=== PATIENT | male | born 1930 | race Caucasian/White ===

== ENCOUNTER 2021-05-23 11:19 | Inpatient (IN) ==
[2021-05-23 12:40] LABS: Albumin 2.9 G/DL (3.4-5.0); Bilirubin,Total 0.5 MG/DL (0.20-1.00); Calcium 8.7 MG/DL (8.5-10.1); Osmolality,Calculated 278.1 MOS/KG (273-304); Total Protein 6.7 G/DL (6.4-8.2)
[2021-05-23 12:56] LABS: Potassium 6.1 MMOL/L (3.5-5.1)
[2021-05-23] MEDS ORDERED: INSULIN REGULAR 100 UNIT/ML IV STA (12:57)
[2021-05-23] MEDS ORDERED: DEXTROSE 50% 25 GM/50 ML VIAL IV STA (12:57)
[2021-05-23] MEDS ORDERED: SODIUM BICARBONATE 50 MEQ/50 ML VIAL IV STA (12:57)
[2021-05-23] MEDS ORDERED: CALCIUM CHLORIDE 1,000 MG/10 ML SYRINGE IV STA (12:57)
[2021-05-23] MEDS ORDERED: DEXTROSE 50% 25 GM/50 ML SYRINGE IV STA (13:00)
[2021-05-23] MEDS ORDERED: ONDANSETRON 4 MG/2 ML VIAL IV PRN (13:18)
[2021-05-23] MEDS ORDERED: ZALEPLON 5 MG CAPSULE PO PRN (13:18)
[2021-05-23] MEDS ORDERED: BISACODYL 5 MG TABLET PO PRN (13:18)
[2021-05-23 13:34] LABS: Basophils % 0.1 % (0.0-0.8); Eosinophils # 0.1 10*3/uL (0.0-0.87); Eosinophils % 0.6 % (0.00-10.9); Hemoglobin 10.3 GM/DL (14.0-18.0); Immature Granulocytes % 1.1 %; Immature Granulocytes Absolute 0.11 #; Lymphocytes # 1.3 10*3/uL (1.4-4.0); Lymphocytes % 12.8 % (21.2-54.2); Mean Corpuscular HGB Conc 34.3 GM/DL (32-36); Mean Corpuscular Volume 98.4 FL (87-102); Mean Platelet Volume 10.9 FL (9.6-12.0); Monocytes % 5.3 % (1.7-12.7); Neutrophils % 80.1 % (38.7-73.9); Platelet Count 176 T/CUMM (130-400); Red Blood Count 3.05 MC/CUMM (3.8-5.5); White Blood Count 10.4 T/CUMM (4-12)
[2021-05-23] MEDS ORDERED: SODIUM POLYSTYRENE SULFATE 15 GM/60 ML BOTTLE PO STA (13:55)
[2021-05-23] MEDS: DOBUTamine 500 MG/250 ML PREMIX IV SCH (13:59)
[2021-05-23] MEDS: ENOXAPARIN 30 MG/0.3 ML SYRINGE SUBCUT SCH (14:31)
[2021-05-23 15:09] LABS: Bilirubin,Urine Negative (Negative); Blood, Urine Negative (Negative); Glucose,Urine (UA) Negative (Negative); Hyaline Casts,Urine 19 /LPF (0-3); Ketones,Urine Negative (Negative); Nitrite,Urine Negative (Negative); Protein,Urine Negative; RBC,Urine 1 /HPF (0-4); Squamous Epithelial Cell,Urine Occasional /HPF (0-10); Urine Appearance CLEAR (Clear); Urine Color Yellow (Yellow); Urine Specific Gravity 1.012 (1.001-1.035); Urine Urobilinogen < 2.0 EU/DL (<2.0)
[2021-05-23] MEDS: ACETAMINOPHEN 325 MG TABLET PO PRN (16:09)
[2021-05-23] MEDS: INSULIN REGULAR 100 UNIT/ML SUBCUT SCH (18:36)
[2021-05-23] MEDS: SIMVASTATIN 20 MG TABLET PO SCH (21:00)
[2021-05-24] MEDS: INSULIN REGULAR 100 UNIT/ML SUBCUT SCH ×4 (00:15→17:59)
[2021-05-24] MEDS: DOBUTamine 500 MG/250 ML PREMIX IV SCH ×2 (03:21→20:54)
[2021-05-24 05:49] LABS: Calcium 8.6 MG/DL (8.5-10.1); Osmolality,Calculated 285.4 MOS/KG (273-304); Potassium 4.8 MMOL/L (3.5-5.1); Risk Ratio 1.77; VLDL Cholesterol 13.2 MG/DL
[2021-05-24 06:09] LABS: Basophils % 0.1 % (0.0-0.8); Eosinophils # 0.1 10*3/uL (0.0-0.87); Hematocrit 30.2 VOL% (42.0-52.0); Immature Granulocytes % 0.8 %; Immature Granulocytes Absolute 0.06 #; Lymphocytes # 0.9 10*3/uL (1.4-4.0); Lymphocytes % 12.2 % (21.2-54.2); Mean Corpuscular HGB Conc 33.1 GM/DL (32-36); Mean Corpuscular Volume 99.3 FL (87-102); Neutrophils % 78.9 % (38.7-73.9); Platelet Count 125 T/CUMM (130-400); Red Blood Count 3.04 MC/CUMM (3.8-5.5); Red Cell Distribution Width 13.9 % (9.3-17.3); White Blood Count 7.3 T/CUMM (4-12)
[2021-05-24] MEDS: MULTIVITAMIN (CENTRUM) TABLET PO SCH (09:36)
[2021-05-24] MEDS: ASPIRIN EC 81 MG TABLET PO SCH (09:36)
[2021-05-24] MEDS: PANTOPRAZOLE 40 MG TABLET PO SCH (09:37)
[2021-05-24] MEDS: AMIODARONE 200 MG TABLET PO SCH (09:37)
[2021-05-24] MEDS: ENOXAPARIN 30 MG/0.3 ML SYRINGE SUBCUT SCH (15:55)
[2021-05-24] MEDS: rOPINIRole 0.25 MG TABLET PO SCH (20:54)
[2021-05-24] MEDS: SIMVASTATIN 20 MG TABLET PO SCH (20:54)
[2021-05-25] MEDS: INSULIN REGULAR 100 UNIT/ML SUBCUT SCH ×4 (01:07→17:50)
[2021-05-25 05:09] LABS: Basophils % 0.1 % (0.0-0.8); Eosinophils # 0.2 10*3/uL (0.0-0.87); Eosinophils % 2.4 % (0.00-10.9); Hematocrit 29.5 VOL% (42.0-52.0); Hemoglobin 9.9 GM/DL (14.0-18.0); Immature Granulocytes % 0.6 %; Immature Granulocytes Absolute 0.05 #; Mean Corpuscular HGB Conc 33.6 GM/DL (32-36); Mean Corpuscular Volume 97.4 FL (87-102); Mean Platelet Volume 10.1 FL (9.6-12.0); Monocytes % 7.4 % (1.7-12.7); Neutrophils % 76.5 % (38.7-73.9); Platelet Count 139 T/CUMM (130-400); Red Blood Count 3.03 MC/CUMM (3.8-5.5); Red Cell Distribution Width 13.8 % (9.3-17.3); White Blood Count 7.8 T/CUMM (4-12)
[2021-05-25 05:34] LABS: Osmolality,Calculated 278.4 MOS/KG (273-304); Potassium 4.1 MMOL/L (3.5-5.1)
[2021-05-25 05:41] LABS: Platelet Estimate Normal
[2021-05-25 05:42] LABS: Hypochromia Slight
[2021-05-25] MEDS: AMIODARONE 200 MG TABLET PO SCH (08:45)
[2021-05-25] MEDS: MULTIVITAMIN (CENTRUM) TABLET PO SCH (08:45)
[2021-05-25] MEDS: ASPIRIN EC 81 MG TABLET PO SCH (08:45)
[2021-05-25] MEDS: PANTOPRAZOLE 40 MG TABLET PO SCH (08:45)
[2021-05-25] MEDS: DOBUTamine 500 MG/250 ML PREMIX IV SCH (10:32)
[2021-05-25] MEDS: ENOXAPARIN 30 MG/0.3 ML SYRINGE SUBCUT SCH (13:31)
[2021-05-25] MEDS: rOPINIRole 0.25 MG TABLET PO SCH (20:38)
[2021-05-25] MEDS: SIMVASTATIN 20 MG TABLET PO SCH (20:38)
[2021-05-26] MEDS: INSULIN REGULAR 100 UNIT/ML SUBCUT SCH ×4 (00:40→18:42)
[2021-05-26] MEDS: DOBUTamine 500 MG/250 ML PREMIX IV SCH ×2 (00:41→15:15)
[2021-05-26 05:22] LABS: Basophils % 0.1 % (0.0-0.8); Eosinophils # 0.1 10*3/uL (0.0-0.87); Eosinophils % 1.7 % (0.00-10.9); Hematocrit 27.9 VOL% (42.0-52.0); Hemoglobin 9.3 GM/DL (14.0-18.0); Immature Granulocytes % 0.6 %; Immature Granulocytes Absolute 0.04 #; Lymphocytes # 1.1 10*3/uL (1.4-4.0); Lymphocytes % 15.6 % (21.2-54.2); Mean Corpuscular HGB Conc 33.3 GM/DL (32-36); Mean Corpuscular Volume 98.2 FL (87-102); Mean Platelet Volume 10.4 FL (9.6-12.0); Monocytes % 8.6 % (1.7-12.7); Neutrophils % 73.4 % (38.7-73.9); Platelet Count 127 T/CUMM (130-400); Red Blood Count 2.84 MC/CUMM (3.8-5.5); Red Cell Distribution Width 13.7 % (9.3-17.3); White Blood Count 7.3 T/CUMM (4-12)
[2021-05-26 05:34] LABS: Calcium 8.2 MG/DL (8.5-10.1); Osmolality,Calculated 280.9 MOS/KG (273-304); Potassium 4.3 MMOL/L (3.5-5.1)
[2021-05-26] MEDS: PANTOPRAZOLE 40 MG TABLET PO SCH (09:38)
[2021-05-26] MEDS: MULTIVITAMIN (CENTRUM) TABLET PO SCH (09:38)
[2021-05-26] MEDS: AMIODARONE 200 MG TABLET PO SCH (09:38)
[2021-05-26] MEDS: ASPIRIN EC 81 MG TABLET PO SCH (09:38)
[2021-05-26] MEDS: ENOXAPARIN 30 MG/0.3 ML SYRINGE SUBCUT SCH (13:32)
[2021-05-26] MEDS: CLINDAMYCIN 300 MG CAPSULE PO SCH ×2 (17:15→21:16)
[2021-05-26] MEDS: CETIRIZINE 10 MG TABLET PO SCH (17:15)
[2021-05-26] MEDS: FAMOTIDINE 20 MG TABLET PO SCH (21:15)
[2021-05-26] MEDS: SIMVASTATIN 20 MG TABLET PO SCH (21:15)
[2021-05-26] MEDS: rOPINIRole 0.25 MG TABLET PO SCH (21:16)
[2021-05-27] MEDS: INSULIN REGULAR 100 UNIT/ML SUBCUT SCH ×4 (00:52→19:09)
[2021-05-27] MEDS: DOBUTamine 500 MG/250 ML PREMIX IV SCH (03:53)
[2021-05-27] MEDS: CLINDAMYCIN 300 MG CAPSULE PO SCH ×3 (05:26→21:37)
[2021-05-27 06:00] LABS: Calcium 8.2 MG/DL (8.5-10.1); Osmolality,Calculated 281.7 MOS/KG (273-304); Potassium 4.2 MMOL/L (3.5-5.1)
[2021-05-27 06:03] LABS: Uric Acid 9.1 MG/DL (3.5-7.2)
[2021-05-27] MEDS: AMIODARONE 200 MG TABLET PO SCH (09:40)
[2021-05-27] MEDS: FAMOTIDINE 20 MG TABLET PO SCH ×2 (09:40→21:09)
[2021-05-27] MEDS: LEVOTHYROXINE 125 MCG TABLET PO SCH (09:40)
[2021-05-27] MEDS: ASPIRIN EC 81 MG TABLET PO SCH (09:40)
[2021-05-27] MEDS: MULTIVITAMIN (CENTRUM) TABLET PO SCH (09:40)
[2021-05-27 10:38] LABS: Basophils % 0.2 % (0.2-1.0); Eosinophils # 0.2 # (0.0-0.70); Eosinophils % 2.6 % (0.0-10.0); Hematocrit 28.8 VOL% (42.0-52.0); Hemoglobin 9.7 GM/DL (14.0-18.0); Lymphocytes # 1.1 # (1.3-2.9); Mean Corpuscular HGB Conc 33.7 GM/DL (32-36); Mean Corpuscular Volume 98.6 FL (80-94); Mean Platelet Volume 10.8 FL (7.4-10.4); Monocytes % 10.1 % (5.5-11.7); Neutrophils % 69.9 % (43.0-65.0); Platelet Count 119 T/CUMM (130-400); Red Blood Count 2.92 MC/CUMM (4.70-6.10); White Blood Count 6.4 T/CUMM (4.8-10.8)
[2021-05-27] MEDS: CETIRIZINE 10 MG TABLET PO SCH (12:08)
[2021-05-27] MEDS: ENOXAPARIN 30 MG/0.3 ML SYRINGE SUBCUT SCH (16:16)
[2021-05-27] MEDS: DESITIN 4OZ/NYSTATIN 15 GRAM MIXTURE PASTE TOP SCH ×2 (19:09→21:09)
[2021-05-27] MEDS: rOPINIRole 0.25 MG TABLET PO SCH (21:09)
[2021-05-27] MEDS: SIMVASTATIN 20 MG TABLET PO SCH (21:09)
[2021-05-28] MEDS: INSULIN REGULAR 100 UNIT/ML SUBCUT SCH ×5 (00:14→23:22)
[2021-05-28] MEDS: DOBUTamine 500 MG/250 ML PREMIX IV SCH (03:11)
[2021-05-28 06:00] LABS: Basophils % 0.1 % (0.0-0.8); Eosinophils # 0.1 10*3/uL (0.0-0.87); Eosinophils % 1.4 % (0.00-10.9); Hematocrit 28.4 VOL% (42.0-52.0); Hemoglobin 9.4 GM/DL (14.0-18.0); Immature Granulocytes % 0.7 %; Immature Granulocytes Absolute 0.07 #; Lymphocytes # 1.1 10*3/uL (1.4-4.0); Lymphocytes % 11.1 % (21.2-54.2); Mean Corpuscular HGB Conc 33.1 GM/DL (32-36); Mean Platelet Volume 10.5 FL (9.6-12.0); Monocytes % 7.8 % (1.7-12.7); Neutrophils % 78.9 % (38.7-73.9); Platelet Count 120 T/CUMM (130-400); Red Blood Count 2.84 MC/CUMM (3.8-5.5); Red Cell Distribution Width 13.8 % (9.3-17.3); White Blood Count 10.2 T/CUMM (4-12)
[2021-05-28] MEDS: CLINDAMYCIN 300 MG CAPSULE PO SCH ×3 (06:09→21:29)
[2021-05-28 06:13] LABS: Albumin 2.4 G/DL (3.4-5.0); Bilirubin,Total 1.1 MG/DL (0.20-1.00); Calcium 8.5 MG/DL (8.5-10.1); Osmolality,Calculated 273.8 MOS/KG (273-304); Potassium 4.2 MMOL/L (3.5-5.1); Total Protein 6.2 G/DL (6.4-8.2)
[2021-05-28] MEDS: LEVOTHYROXINE 125 MCG TABLET PO SCH (06:59)
[2021-05-28] MEDS ORDERED: ALUMINUM/MAGNES/SIMETH MAX STR 30 ML UDCUP PO ONE (08:31)
[2021-05-28] MEDS: CETIRIZINE 10 MG TABLET PO SCH (08:47)
[2021-05-28] MEDS: AMIODARONE 200 MG TABLET PO SCH (08:48)
[2021-05-28] MEDS: ASPIRIN EC 81 MG TABLET PO SCH (08:48)
[2021-05-28] MEDS: MULTIVITAMIN (CENTRUM) TABLET PO SCH (08:48)
[2021-05-28] MEDS: DESITIN 4OZ/NYSTATIN 15 GRAM MIXTURE PASTE TOP SCH ×2 (08:48→21:29)
[2021-05-28] MEDS: FAMOTIDINE 20 MG TABLET PO SCH ×2 (08:48→21:29)
[2021-05-28] MEDS: ENOXAPARIN 30 MG/0.3 ML SYRINGE SUBCUT SCH (12:32)
[2021-05-28] MEDS: rOPINIRole 0.25 MG TABLET PO SCH (21:29)
[2021-05-28] MEDS: SIMVASTATIN 20 MG TABLET PO SCH (21:29)
[2021-05-29 05:28] LABS: Basophils % 0.3 % (0.0-0.8); Eosinophils # 0.3 10*3/uL (0.0-0.87); Hematocrit 27.8 VOL% (42.0-52.0); Hemoglobin 9.1 GM/DL (14.0-18.0); Immature Granulocytes % 0.6 %; Immature Granulocytes Absolute 0.05 #; Lymphocytes # 1.3 10*3/uL (1.4-4.0); Lymphocytes % 14.1 % (21.2-54.2); Mean Corpuscular HGB Conc 32.7 GM/DL (32-36); Mean Corpuscular Volume 100.4 FL (87-102); Mean Platelet Volume 10.3 FL (9.6-12.0); Monocytes % 8.8 % (1.7-12.7); Neutrophils % 73.2 % (38.7-73.9); Platelet Count 123 T/CUMM (130-400); Red Blood Count 2.77 MC/CUMM (3.8-5.5); Red Cell Distribution Width 13.7 % (9.3-17.3)
[2021-05-29] MEDS: INSULIN REGULAR 100 UNIT/ML SUBCUT SCH ×3 (06:12→18:29)
[2021-05-29] MEDS: PANTOPRAZOLE 40 MG TABLET PO SCH (06:30)
[2021-05-29] MEDS: CLINDAMYCIN 300 MG CAPSULE PO SCH ×3 (06:30→21:33)
[2021-05-29] MEDS: LEVOTHYROXINE 125 MCG TABLET PO SCH (06:31)
[2021-05-29 06:53] LABS: Calcium 8.4 MG/DL (8.5-10.1); Osmolality,Calculated 273.7 MOS/KG (273-304); Potassium 4.2 MMOL/L (3.5-5.1)
[2021-05-29] MEDS ORDERED: ALUM/MAG/SIMETH/LIDO VISC 1:1 30 ML BOTTLE PO ONE (08:07)
[2021-05-29] MEDS: AMIODARONE 200 MG TABLET PO SCH (09:29)
[2021-05-29] MEDS: CETIRIZINE 10 MG TABLET PO SCH (09:29)
[2021-05-29] MEDS: MULTIVITAMIN (CENTRUM) TABLET PO SCH (09:30)
[2021-05-29] MEDS: FAMOTIDINE 20 MG TABLET PO SCH ×2 (09:30→21:33)
[2021-05-29] MEDS: ASPIRIN EC 81 MG TABLET PO SCH (09:30)
[2021-05-29] MEDS: DESITIN 4OZ/NYSTATIN 15 GRAM MIXTURE PASTE TOP SCH ×2 (09:32→21:34)
[2021-05-29] MEDS: ENOXAPARIN 30 MG/0.3 ML SYRINGE SUBCUT SCH (13:23)
[2021-05-29] MEDS: carvediloL 3.125 MG TABLET PO SCH (21:33)
[2021-05-29] MEDS: rOPINIRole 0.25 MG TABLET PO SCH (21:33)
[2021-05-29] MEDS: SIMVASTATIN 20 MG TABLET PO SCH (21:33)
[2021-05-30] MEDS: INSULIN REGULAR 100 UNIT/ML SUBCUT SCH ×4 (02:12→18:23)
[2021-05-30 05:07] LABS: Basophils % 0.2 % (0.0-0.8); Eosinophils # 0.4 10*3/uL (0.0-0.87); Eosinophils % 4.6 % (0.00-10.9); Hematocrit 28.5 VOL% (42.0-52.0); Hemoglobin 9.3 GM/DL (14.0-18.0); Immature Granulocytes % 0.4 %; Immature Granulocytes Absolute 0.03 #; Lymphocytes # 1.1 10*3/uL (1.4-4.0); Mean Corpuscular HGB Conc 32.6 GM/DL (32-36); Mean Corpuscular Volume 100.7 FL (87-102); Mean Platelet Volume 10.5 FL (9.6-12.0); Monocytes % 8.3 % (1.7-12.7); Neutrophils % 73.5 % (38.7-73.9); Platelet Count 134 T/CUMM (130-400); Red Blood Count 2.83 MC/CUMM (3.8-5.5); Red Cell Distribution Width 13.4 % (9.3-17.3); White Blood Count 8.3 T/CUMM (4-12)
[2021-05-30 05:23] LABS: Calcium 8.2 MG/DL (8.5-10.1); Osmolality,Calculated 273.5 MOS/KG (273-304); Potassium 4.4 MMOL/L (3.5-5.1)
[2021-05-30] MEDS: CLINDAMYCIN 300 MG CAPSULE PO SCH ×3 (05:45→21:19)
[2021-05-30] MEDS: LEVOTHYROXINE 125 MCG TABLET PO SCH (06:46)
[2021-05-30] MEDS: PANTOPRAZOLE 40 MG TABLET PO SCH ×2 (06:46→17:17)
[2021-05-30] MEDS ORDERED: FLUCONAZOLE 100 MG TABLET PO ONE (08:06)
[2021-05-30] MEDS: carvediloL 3.125 MG TABLET PO SCH ×2 (10:42→20:54)
[2021-05-30] MEDS: MULTIVITAMIN (CENTRUM) TABLET PO SCH (10:42)
[2021-05-30] MEDS: ASPIRIN EC 81 MG TABLET PO SCH (10:42)
[2021-05-30] MEDS: CETIRIZINE 10 MG TABLET PO SCH (10:43)
[2021-05-30] MEDS: BACILLUS COAGULANS CAPLET PO SCH (10:43)
[2021-05-30] MEDS: SUCRALFATE 1 GM/10 ML UDCUP PO SCH ×5 (10:43→20:54)
[2021-05-30] MEDS: AMIODARONE 200 MG TABLET PO SCH (10:43)
[2021-05-30] MEDS: DESITIN 4OZ/NYSTATIN 15 GRAM MIXTURE PASTE TOP SCH ×2 (10:43→20:54)
[2021-05-30] MEDS: ENOXAPARIN 30 MG/0.3 ML SYRINGE SUBCUT SCH (14:21)
[2021-05-30] MEDS: ALUMINUM/MAGNES/SIMETH MAX STR 30 ML UDCUP PO PRN ×2 (14:23→22:05)
[2021-05-30] MEDS: FUROSEMIDE 40 MG TABLET PO SCH (17:17)
[2021-05-30] MEDS: SIMVASTATIN 20 MG TABLET PO SCH (20:54)
[2021-05-30] MEDS: rOPINIRole 0.25 MG TABLET PO SCH (20:54)
[2021-05-31] MEDS: INSULIN REGULAR 100 UNIT/ML SUBCUT SCH ×4 (01:40→19:34)
[2021-05-31] MEDS: LEVOTHYROXINE 125 MCG TABLET PO SCH (06:10)
[2021-05-31] MEDS: CLINDAMYCIN 300 MG CAPSULE PO SCH ×3 (06:10→21:00)
[2021-05-31] MEDS: PANTOPRAZOLE 40 MG TABLET PO SCH ×2 (06:10→18:12)
[2021-05-31 08:36] LABS: Basophils % 0.4 % (0.0-0.8); Eosinophils # 0.3 10*3/uL (0.0-0.87); Eosinophils % 4.7 % (0.00-10.9); Hematocrit 30.1 VOL% (42.0-52.0); Hemoglobin 9.8 GM/DL (14.0-18.0); Immature Granulocytes % 0.4 %; Immature Granulocytes Absolute 0.03 #; Lymphocytes # 1.1 10*3/uL (1.4-4.0); Lymphocytes % 14.5 % (21.2-54.2); Mean Corpuscular HGB Conc 32.6 GM/DL (32-36); Mean Corpuscular Volume 101.3 FL (87-102); Mean Platelet Volume 10.1 FL (9.6-12.0); Monocytes % 8.4 % (1.7-12.7); Neutrophils % 71.6 % (38.7-73.9); Platelet Count 142 T/CUMM (130-400); Red Blood Count 2.97 MC/CUMM (3.8-5.5); Red Cell Distribution Width 13.5 % (9.3-17.3); White Blood Count 7.3 T/CUMM (4-12)
[2021-05-31 08:50] LABS: Calcium 8.3 MG/DL (8.5-10.1); Osmolality,Calculated 277.4 MOS/KG (273-304); Potassium 4.7 MMOL/L (3.5-5.1)
[2021-05-31] MEDS ORDERED: FUROSEMIDE 40 MG/4 ML VIAL IV ONE (09:15)
[2021-05-31] MEDS: ASPIRIN EC 81 MG TABLET PO SCH (10:18)
[2021-05-31] MEDS: BACILLUS COAGULANS CAPLET PO SCH (10:18)
[2021-05-31] MEDS: MULTIVITAMIN (CENTRUM) TABLET PO SCH (10:18)
[2021-05-31] MEDS: carvediloL 3.125 MG TABLET PO SCH ×2 (10:18→21:00)
[2021-05-31] MEDS: SUCRALFATE 1 GM/10 ML UDCUP PO SCH ×4 (10:19→21:00)
[2021-05-31] MEDS: AMIODARONE 200 MG TABLET PO SCH (10:19)
[2021-05-31] MEDS: FUROSEMIDE 40 MG TABLET PO SCH (10:19)
[2021-05-31] MEDS: DESITIN 4OZ/NYSTATIN 15 GRAM MIXTURE PASTE TOP SCH ×2 (10:20→21:00)
[2021-05-31] MEDS: CETIRIZINE 10 MG TABLET PO SCH (10:22)
[2021-05-31] MEDS: ENOXAPARIN 30 MG/0.3 ML SYRINGE SUBCUT SCH (13:13)
[2021-05-31] MEDS: SIMVASTATIN 20 MG TABLET PO SCH (20:59)
[2021-05-31] MEDS: rOPINIRole 0.25 MG TABLET PO SCH (21:00)
[2021-06-01] MEDS: INSULIN REGULAR 100 UNIT/ML SUBCUT SCH ×4 (00:51→17:52)
[2021-06-01] MEDS: PANTOPRAZOLE 40 MG TABLET PO SCH ×2 (05:41→16:26)
[2021-06-01] MEDS: CLINDAMYCIN 300 MG CAPSULE PO SCH ×3 (05:41→21:26)
[2021-06-01] MEDS: ACETAMINOPHEN 325 MG TABLET PO PRN (05:50)
[2021-06-01 06:09] LABS: Calcium 8.4 MG/DL (8.5-10.1); Osmolality,Calculated 273.7 MOS/KG (273-304); Potassium 4.5 MMOL/L (3.5-5.1)
[2021-06-01] MEDS ORDERED: FUROSEMIDE 40 MG/4 ML VIAL IV ONE (07:18)
[2021-06-01] MEDS: SUCRALFATE 1 GM/10 ML UDCUP PO SCH ×4 (07:39→20:34)
[2021-06-01] MEDS: LEVOTHYROXINE 125 MCG TABLET PO SCH (07:39)
[2021-06-01] MEDS: DESITIN 4OZ/NYSTATIN 15 GRAM MIXTURE PASTE TOP SCH ×2 (09:14→20:34)
[2021-06-01] MEDS: carvediloL 3.125 MG TABLET PO SCH ×2 (09:14→20:34)
[2021-06-01] MEDS: ASPIRIN EC 81 MG TABLET PO SCH (09:14)
[2021-06-01] MEDS: BACILLUS COAGULANS CAPLET PO SCH (09:14)
[2021-06-01] MEDS: MULTIVITAMIN (CENTRUM) TABLET PO SCH (09:14)
[2021-06-01] MEDS: CETIRIZINE 10 MG TABLET PO SCH (09:14)
[2021-06-01] MEDS: AMIODARONE 200 MG TABLET PO SCH (09:14)
[2021-06-01] MEDS: ENOXAPARIN 30 MG/0.3 ML SYRINGE SUBCUT SCH (14:21)
[2021-06-01] MEDS: rOPINIRole 0.25 MG TABLET PO SCH (20:34)
[2021-06-01] MEDS: SIMVASTATIN 20 MG TABLET PO SCH (20:34)
[2021-06-02] MEDS: INSULIN REGULAR 100 UNIT/ML SUBCUT SCH ×4 (00:52→18:33)
[2021-06-02] MEDS: CLINDAMYCIN 300 MG CAPSULE PO SCH (05:44)
[2021-06-02] MEDS: PANTOPRAZOLE 40 MG TABLET PO SCH ×2 (05:44→16:43)
[2021-06-02] MEDS: LEVOTHYROXINE 125 MCG TABLET PO SCH (06:10)
[2021-06-02 06:49] LABS: Calcium 8.4 MG/DL (8.5-10.1); Osmolality,Calculated 277.4 MOS/KG (273-304); Potassium 4.7 MMOL/L (3.5-5.1)
[2021-06-02] MEDS: carvediloL 3.125 MG TABLET PO SCH ×2 (09:13→21:23)
[2021-06-02] MEDS: SUCRALFATE 1 GM/10 ML UDCUP PO SCH ×4 (09:13→21:22)
[2021-06-02] MEDS: ASPIRIN EC 81 MG TABLET PO SCH (09:13)
[2021-06-02] MEDS: AMIODARONE 200 MG TABLET PO SCH (09:13)
[2021-06-02] MEDS: CETIRIZINE 10 MG TABLET PO SCH (09:13)
[2021-06-02] MEDS: MULTIVITAMIN (CENTRUM) TABLET PO SCH (09:13)
[2021-06-02] MEDS: BACILLUS COAGULANS CAPLET PO SCH (09:13)
[2021-06-02] MEDS: DESITIN 4OZ/NYSTATIN 15 GRAM MIXTURE PASTE TOP SCH ×2 (11:05→21:23)
[2021-06-02] MEDS: FUROSEMIDE 40 MG TABLET PO SCH (12:41)
[2021-06-02] MEDS: ENOXAPARIN 30 MG/0.3 ML SYRINGE SUBCUT SCH (12:41)
[2021-06-02] MEDS: rOPINIRole 0.25 MG TABLET PO SCH (21:22)
[2021-06-02] MEDS: SIMVASTATIN 20 MG TABLET PO SCH (21:23)
[2021-06-03] MEDS: INSULIN REGULAR 100 UNIT/ML SUBCUT SCH ×3 (00:14→12:02)
[2021-06-03 05:22] LABS: Basophils % 0.5 % (0.0-0.8); Eosinophils # 0.3 10*3/uL (0.0-0.87); Hematocrit 28.2 VOL% (42.0-52.0); Hemoglobin 9.1 GM/DL (14.0-18.0); Immature Granulocytes % 0.8 %; Immature Granulocytes Absolute 0.05 #; Lymphocytes # 1.2 10*3/uL (1.4-4.0); Mean Corpuscular HGB Conc 32.3 GM/DL (32-36); Mean Corpuscular Volume 101.8 FL (87-102); Mean Platelet Volume 10.3 FL (9.6-12.0); Monocytes % 9.6 % (1.7-12.7); Neutrophils % 65.1 % (38.7-73.9); Platelet Count 140 T/CUMM (130-400); Red Blood Count 2.77 MC/CUMM (3.8-5.5); Red Cell Distribution Width 13.4 % (9.3-17.3); White Blood Count 6.3 T/CUMM (4-12)
[2021-06-03 05:46] LABS: Calcium 8.4 MG/DL (8.5-10.1); Osmolality,Calculated 281.1 MOS/KG (273-304); Potassium 4.7 MMOL/L (3.5-5.1)
[2021-06-03 05:50] LABS: Eosinophils 3 % (0-10); Hypochromia Slight; Lymphocytes 17 % (20-55); Macrocytosis Slight; Segmented Neutrophils 73 % (50-85); Total Cells Counted 100
[2021-06-03 05:51] LABS: Platelet Estimate Adequate
[2021-06-03] MEDS: PANTOPRAZOLE 40 MG TABLET PO SCH (06:11)
[2021-06-03] MEDS: LEVOTHYROXINE 125 MCG TABLET PO SCH (06:11)
[2021-06-03] MEDS ORDERED: FUROSEMIDE 40 MG TABLET PO SCH (09:00)
[2021-06-03] MEDS: ASPIRIN EC 81 MG TABLET PO SCH (09:33)
[2021-06-03] MEDS: MULTIVITAMIN (CENTRUM) TABLET PO SCH (09:34)
[2021-06-03] MEDS: CETIRIZINE 10 MG TABLET PO SCH (09:34)
[2021-06-03] MEDS: AMIODARONE 200 MG TABLET PO SCH (09:34)
[2021-06-03] MEDS: FUROSEMIDE 40 MG TABLET PO SCH (09:35)
[2021-06-03] MEDS: DESITIN 4OZ/NYSTATIN 15 GRAM MIXTURE PASTE TOP SCH (09:36)
[2021-06-03] MEDS: carvediloL 3.125 MG TABLET PO SCH (09:40)
[2021-06-03] MEDS: BACILLUS COAGULANS CAPLET PO SCH (09:45)
[2021-06-03] MEDS: SUCRALFATE 1 GM/10 ML UDCUP PO SCH ×2 (09:45→13:18)
[2021-06-03 11:28] VITALS: BP 119/71
[2021-06-03] MEDS: ENOXAPARIN 30 MG/0.3 ML SYRINGE SUBCUT SCH (13:17)
== END 2021-06-03 14:15 | disposition swing bed (61) | DRG 291 ==
LOC: EDBD → EDUNIT# → N.ED 11:19 → N.EDINP 13:18 → N.TELEN 14:53
PROVIDERS: ADMIT Internal Medicine Cardiovascular Disease; ATTEND Internal Medicine Cardiovascular Disease